=== PATIENT | male | born 1985 | race Caucasian/White ===

== ENCOUNTER 2017-07-15 02:47 | Emergency (ER) | payer SELFPAY ==
[~2017-07-15] VITALS: Ht 165.1 cm; Wt 68.0 kg
[2017-07-15 02:49] VITALS: BP 160/84
== END 2017-07-15 03:05 | disposition left against medical advice (07) ==
LOC: EMS 02:49
DX: Z02.89 Encounter for other administrative examinations (principal); Z53.21 Procedure and treatment not carried out due to patient leaving prior to being seen by health care provider